=== PATIENT | male | born 1985 | race Caucasian/White ===

== ENCOUNTER 2019-03-27 07:09 | Day surgery (SDC) | payer BC ==
[~2019-03-27] VITALS: Ht 195.6 cm; Wt 73.3 kg
[2019-03-27] VITALS (14 sets, daily range): BP systolic 83–116; BP diastolic 44–67; PULSE 60–88; RESP 15–22; Ht 195.6 cm; Wt 73.3 kg
--- NOTE | 2019-03-27 07:59 | HPN ---
Date/Time of Note Date/Time of Note DATE: 03/27/19 TIME: 07:59 Interval H&P Admission Note Pt. seen H&P reviewed: No system changes OZZIE COLMENARES MD Mar 27, 2019 07:59
--- NOTE | 2019-03-27 09:40 | PREAC ---
Date/Time of Note Date/Time of Note DATE: 03/27/19 TIME: 09:38 Anesthesia Eval and Record Evaluation Time Pre-Procedure Interview DATE: 03/27/19 TIME: 09:38 Age 33 Sex male NPO: 8 hrs Preoperative diagnosis left ankle fracture Planned procedure orif left ankle fracture . left ankle arthroscopy, ligament repair Past Medical History Past Medical History: None Surgery & Anesthesia Issues No known issue Meds Anticoagulation: No Beta Renny within 24 hr: No Reason Beta Renny not given: Pt. not on B-Renny No Active Prescriptions or Reported Meds Meds reviewed: Yes Allergies Coded Allergies: No Known Allergy (Unverified , 03/27/19) Allergies Reviewed: Yes Labs/Studies Labs Reviewed: Reviewed by anesthesiologist test: N/A Pre-procedure Exam Last vitals Vital Signs Date Temp Pulse Resp B/P (MAP) Pulse Ox O2 O2 Flow FiO2 Time Delivery Rate 03/27/19 98.6 72 16 116/67 98 Room Air 08:25 (83) Airway: Adequate mouth opening, Adequate thyromental dist Mallampati: Mallampati I Teeth: Normal Lung: Normal Heart: Normal ASA Physical Status ASA physical status: 1 Emergency: None Planned Anesthetic General/MAC: LMA Nerve block: Femoral (left), Sciatic (left) Planned Pain Management Single shot nerve block, Parenteral pain med Pre-operative Attestations Prior to commencing anesthesia and surgery, the patient was re-evaluated, there was verification of: *The patient's identity *The results of appropriate recent lab work and preoperative vital signs *The above evaluation not changing prior to induction *Anesthetic plan, risk benefits, alternative and complications discussed with patient/family; questions answered; patient/family understands, accepts and wishes to proceed. ARTURO GONZALEZ Mar 27, 2019 09:40
[2019-03-27] MEDS ORDERED: SEVOFLURANE 15 MIN ONE (09:43)
[2019-03-27] MEDS ORDERED: BUPIVACAINE 0.5% (SDV) 30 ML INJ ONE (09:43)
[2019-03-27] MEDS ORDERED: POLYMYXIN/BACITRACIN 1L IRRIG ONE (09:46)
[2019-03-27] MEDS ORDERED: NEOMYC/POLYMYX/BACIT 30 GM OINT ONE (09:46)
[2019-03-27] MEDS ORDERED: MIDAZOLAM 1 MG/ML 2 ML INJ ONE (09:49)
[2019-03-27] MEDS ORDERED: PROPOFOL 20 ML ONE (09:55)
[2019-03-27] MEDS ORDERED: ROCURONIUM 50 MG INJ ONE (09:55)
[2019-03-27] MEDS ORDERED: CEFAZOLIN 1 GM INJ ONE (09:56)
[2019-03-27] MEDS ORDERED: DEXAMETHASONE 4 MG/ML 5 ML INJ ONE (09:56)
[2019-03-27] MEDS ORDERED: LIDOCAINE 2% (SDV) 5 ML INJ ONE (09:56)
[2019-03-27] MEDS ORDERED: ONDANSETRON 4 MG INJ ONE (09:56)
[2019-03-27] MEDS ORDERED: KETOROLAC 30 MG INJ ONE (12:14)
[2019-03-27] MEDS ORDERED: LABETALOL HCL 20MG INJ ONE (12:16)
--- NOTE | 2019-03-27 13:12 | QN ---
Documentation Job number: [id number] OZZIE COLMENARES MD Mar 27, 2019 13:12
[2019-03-27] MEDS ORDERED: morphine 2 MG INJ IV PRN (13:30)
[2019-03-27] MEDS ORDERED: GABAPENTIN 300 MG CAP PO ONE (13:30)
[2019-03-27] MEDS ORDERED: KETOROLAC 30 MG INJ IV SCH (13:30)
[2019-03-27] MEDS ORDERED: NEOSTIGMINE 3 MG/3 ML SYRINGE ONE (13:55)
[2019-03-27] MEDS ORDERED: GLYCOPYRROLATE 0.4 MG INJ ONE (13:56)
--- NOTE | 2019-03-27 14:04 | PAC ---
Date/Time of Note Date/Time of Note DATE: 03/27/19 TIME: 14:04 Post-Anesthesia Notes Post-Anesthesia Note Last documented vital signs Vital Signs Date Temp Pulse Resp B/P (MAP) Pulse Ox O2 O2 Flow FiO2 Time Delivery Rate 03/27/19 98.6 72 16 116/67 98 Room Air 1404 (83) Activity: WNL Respiratory function: WNL Cardiovascular function: WNL Mental status: Baseline Pain reasonably controlled: Yes Hydration appropriate: Yes Nausea/Vomiting absent: Yes ARTURO GONZALEZ Mar 27, 2019 14:04
[2019-03-27] MEDS ORDERED: LABETALOL HCL 20MG INJ IV PRN (14:30)
[2019-03-27] MEDS ORDERED: FENTAnyl 50 MCG/ML VIAL IV PRN ×3 (14:30)
[2019-03-27] MEDS ORDERED: HYDROmorphONE 1 MG/5 ML IV SYRINGE IV PRN ×3 (14:30)
[2019-03-27] MEDS ORDERED: MIDAZOLAM 1 MG/ML 2 ML INJ IV PRN (14:30)
[2019-03-27] MEDS ORDERED: ALBUTEROL 0.083% (NEB) 2.5 MG/3 ML AMP HHN PRN (14:30)
[2019-03-27] MEDS ORDERED: DIPHENHYDRAMINE 50 MG INJ IV PRN (14:30)
[2019-03-27] MEDS ORDERED: METOCLOPRAMIDE 10 MG INJ IV PRN (14:30)
[2019-03-27] MEDS ORDERED: KETOROLAC 30 MG INJ IV PRN (14:30)
[2019-03-27] MEDS ORDERED: MEPERIDINE 25 MG INJ IV PRN (14:30)
[2019-03-27] MEDS ORDERED: EPHEDrine 25 MG/5 ML SYG IV PRN (14:30)
[2019-03-27] MEDS ORDERED: hydrALAzine 20 MG INJ IV PRN (14:30)
[2019-03-27] MEDS ORDERED: OXYCODONE/ACETAMINOPHEN (5/325) TAB PO PRN ×2 (14:30)
[2019-03-27] MEDS ORDERED: ONDANSETRON 4 MG INJ IV PRN (14:30)
--- NOTE | 2019-03-28 07:48 | OPR ---
DATE OF OPERATION: 03/27/2019 PREOPERATIVE DIAGNOSIS: Left ankle distal tibial pilon and fibular fracture. POSTOPERATIVE DIAGNOSIS: Left ankle distal tibial pilon and fibular fracture. OPERATION PERFORMED: 1. Left ankle open reduction internal fixation of distal tibial pilon fracture and fibular fracture with application of allograft. 2. Application of amniotic membrane. SURGEON: Isaiah Whitten MD TRANSPLANT CASE MANAGER: Rio Hoffman DO ANESTHESIA: General with popliteal and adductor block. ANESTHESIOLOGIST: Dr. Orozco. TOURNIQUET TIME: 130 minutes. ESTIMATED BLOOD LOSS: Minimal. TRANSFUSION: None. DRAINS: None. IMPLANTS: 1. Arthrex anterior lateral stainless steel tibial pilon plate. 2. Arthrex medial tibial pilon plate. 3. Arthrex fibularlock with 2 associated locking screws. 4. Arthrex Arthro Cell. 5. Cancellous autograft. INDICATIONS: The patient is a 33-year-old male who sustained a left ankle distal pilon and fibular fracture approximately 3 weeks ago. Given the swelling is reduced and his ankle fracture CT shows evidence of significant displacement and comminution, patient in need of surgery. RISK NOTE: Patient was explained the risks and benefits of surgery and the patient's [place] language including not limited to infection, bleeding, injury to blood vessels, nerves, ligaments or tendons. Risks of anesthesia, deep vein thrombosis and need for reduce future surgery. Patient acknowledged these risk by signing the surgical consent form. DESCRIPTION OF PROCEDURE: The patient was met in the preoperative holding area and proper extremity was marked and confirmed with the patient and consent. The patient was brought to the operative theatre, placed supine on the operative table and given preoperative antibiotic and regional block and general anesthesia. Patient prepped and draped in the normal sterile fashion. Time-out taken, all present in the operating room agreed it was the correct patient, extremity and procedure. The tourniquet was brought to 250 mmHg and attention was initially turned to the anterior portion of the ankle where an anterolateral incision was made with care to avoid any injury to the superficial peroneal nerve which was identified and protected throughout the case. The anterior compartment and peroneal tertius were then retracted medially and the fracture was identified and reduced and held in position with K-wires. Anterolateral plate was then placed from anterior lateral to posterior medial with screws placed over the fracture; both on the medial and lateral portion. Locking screws were placed distally followed by cortical screws placed proximally. Once this was placed, attention was then turned to the medial aspect of the ankle and incision was made over the medial portion of the ankle with care to avoid any injury to the saphenous nerve and vein which were protected and identified and retracted. The fracture was identified and reduced and then opened up and curetted and cleaned out and irrigated thoroughly, then packed with allograft bone graft Arthro Cell as well as cancellus allograft. Then packed thoroughly with bone graft and then a medial plate was then placed over the medial portion of the malleolus extending proximally past the metaphyseal fracture. The fracture was then fixated distally followed by a proximal fixation percutaneously and attention was turned back to the anterior lateral plate and was then fixated proximally as well, the plate with a cortical locking screw. Attention was then turned to the fibular fracture where there was a transverse fracture of the [place] B site and then a fibulock was then placed in the typical fashion with an incision made distally followed by opening reamer and opening guidewire and the placement of the implant and an outrigger followed by the 2 2.7mm screws placed distally. The fracture appeared to be well reduced in AP and lateral position. All the wounds were then irrigated thoroughly and then the fractures were then shown to be well reduced in the AP, lateral and oblique position and all screws were placed in the well reduced position. The wounds were then irrigated thoroughly and closed in layers with an amniotic membrane placed down initially over the anterior medial aspect of the fracture followed by 2-0 Vicryl, followed by 3-0 Monocryl, followed by 4-0 nylon in vertical mattress fashion. At the end of the case, all sponge and needle counts were correct. The patient taken to PACU in stable condition. Toes warm and profuse. TRANSPLANT CASE MANAGER NOTE: An orthopedic surgeon was necessary for this case due to the significantly complex nature of the pilon fracture. Without an orthopedic surgeon, the case would have been longer and more complex. Therefore it was important that there was an orthopedic assisting in both retracting and manipulating the fracture fragment, fixating and holding the fracture fragment in the appropriate position during the fracture reduction and during the surgery. Again without an orthopedic surgeon assisting in the case, it would have been extensively longer and more complex. Please compensate for the real estate executive assistant surgeon. Dictated By: ISAIAH KWOK/ROBE Conf#: [id number] DID#: [id number] MTDD
== END 2019-03-27 16:15 | disposition home or self-care (01) ==
LOC: SDS 07:09
PROVIDERS: ATTEND Orthopaedic Surgery
DX: S82.872D Displaced pilon fracture of left tibia, subsequent encounter for closed fracture with routine healing (principal); S82.832D Other fracture of upper and lower end of left fibula, subsequent encounter for closed fracture with routine healing; X58.XXXD Exposure to other specified factors, subsequent encounter
CPT/HCPCS: 27758; 73610; 82306; C1713; J0690; J1100; J1885; J2250; J2405; J2710; J2765; J3010